=== PATIENT | male | born 1995 | race Two or more races ===

== ENCOUNTER 2020-09-24 12:25 | Emergency (ER) | payer MEDICAID, OTHER ==
[~2020-09-24] VITALS: Ht 180.3 cm; Wt 117.9 kg
[2020-09-24] MEDS ORDERED: LIDOCAINE 1% HCL (LOCAL ANESTH.) INJ 20ML MDV IJ ONE (14:00)
[2020-09-24 14:28] VITALS: BP 170/99
== END 2020-09-24 14:43 | disposition home or self-care (01) ==
LOC: ER 12:25
DX: S81.011A Laceration without foreign body, right knee, initial encounter (principal); W22.8XXA Striking against or struck by other objects, initial encounter; Y93.89 Activity, other specified; Y92.89 Other specified places as the place of occurrence of the external cause; Y99.8 Other external cause status
CPT/HCPCS: 12004; 99283; J2001